=== PATIENT | female | born 1990 | race Two or more races ===

== ENCOUNTER 2016-09-18 22:03 | Inpatient (IN) | payer OTHER ==
[~2016-09-18] VITALS: Ht 160 cm; Wt 82.0 kg
[2016-09-19] MEDS ORDERED: OXYTOCIN 30U/ 0.9% NaCL 500ML 500 ML IV ONE (01:30)
[2016-09-19] MEDS ORDERED: CALCIUM CARBONATE 500 MG TAB.CHEW PO PRN (01:30)
[2016-09-19] MEDS ORDERED: FENTANYL PF 100 MCG/2ML IV PRN (01:30)
[2016-09-19] MEDS ORDERED: ONDANSETRON 2MG/ML, 2ML IVPush PRN (01:30)
[2016-09-19] MEDS ORDERED: LACTATED RINGERS 1,000 ML IVBOLUS PRN ×2 (01:30→07:30)
[2016-09-19] MEDS ORDERED: D5%-LACTATED RINGERS 1,000 ML IV SCH (01:30)
[2016-09-19] MEDS ORDERED: FENTANYL PF 100 MCG/2ML ONE ×2 (01:30→02:32)
[2016-09-19] MEDS: LACTATED RINGERS 1,000 ML IV SCH ×2 (01:39→03:09)
[2016-09-19] MEDS: FENTANYL PF 100 MCG/2ML IVPush PRN ×2 (01:40→02:38)
[2016-09-19] MEDS ORDERED: NEWBORN KIT ONE (01:43)
[2016-09-19 02:10] LABS: HEMOGLOBIN 14.2 g/dL (11.7-16.4)
[2016-09-19] MEDS ORDERED: ALBUTEROL/IPRATROPIUM 2.5MG/0.5MG, 3 ML IPPB PRN (02:30)
[2016-09-19] MEDS ORDERED: BUTORPHANOL 1 MG/ML, 1ML IM ONE (02:30)
[2016-09-19] MEDS ORDERED: PENICILLIN GK 5,000,000 UNITS in DEXTROSE 5% 100 ML IVPB ONE (03:00)
[2016-09-19] MEDS ORDERED: BUPIVACAINE 0.25% ONE (03:06)
[2016-09-19] MEDS ORDERED: LIDOCAINE/PF 1.5-EPI 1:200K, 30 ML ONE (03:06)
[2016-09-19] MEDS ORDERED: FENTANYL/BUPIV./NS/PF 250 ML EPIDCONT ONE (03:09)
[2016-09-19] MEDS ORDERED: OXYTOCIN 30U/ 0.9% NaCL 500ML 500 ML ONE ×2 (04:49→11:22)
[2016-09-19] MEDS ORDERED: PLEASE ENTER HEIGHT AND WEIGHT MC SCH (06:30)
[2016-09-19] MEDS ORDERED: PENICILLIN GK 2,500,000 UNITS in DEXTROSE 5% 100 ML IV SCH (07:00)
[2016-09-19] MEDS ORDERED: LACTATED RINGERS 1,000 ML IV SCH (07:03)
[2016-09-19] MEDS ORDERED: FENTANYL/BUPIV./NS/PF 250 ML EPIDCONT SCH (07:03)
[2016-09-19] MEDS ORDERED: EPHEDRINE 50 MG/ML, 1ML IVPush PRN (07:30)
[2016-09-19] MEDS ORDERED: NALOXONE 0.4 MG/ML, 1ML IVPush PRN (07:30)
[2016-09-19] MEDS ORDERED: OXYTOCIN 30U/ 0.9% NaCL 500ML 500 ML IV SCH ×2 (08:55)
[2016-09-19] MEDS ORDERED: OXYcodone/APAP 5/325MG TABLET PO PRN ×2 (09:00)
[2016-09-19] MEDS: PRENATAL VIT/IRON/FA 1 EACH TABLET PO SCH (09:00)
[2016-09-19] MEDS ORDERED: MISOPROSTOL 200 MCG TABLET PR PRN (09:00)
[2016-09-19] MEDS ORDERED: ONDANSETRON 2MG/ML, 2ML IV PRN (09:00)
[2016-09-19 12:00] VITALS: BP 112/68
[2016-09-19 16:05] VITALS: BP 128/75
[2016-09-19 17:52] LABS: HEMOGLOBIN 12.4 g/dL (11.7-16.4)
[2016-09-19 19:35] VITALS: BP 109/71
[2016-09-19] MEDS ORDERED: DIPH,PERTUSS(ACELL),TET VAC/PF NC IM-VACC ONE ×3 (21:14→22:00)
[2016-09-19] MEDS: IBUPROFEN 600 MG TABLET PO PRN (21:31)
[2016-09-19 23:40] VITALS: BP 107/57
[2016-09-20 04:32] VITALS: BP 115/72
[2016-09-20] MEDS: IBUPROFEN 600 MG TABLET PO PRN ×3 (06:48→21:56)
[2016-09-20 07:40] VITALS: BP 123/79
[2016-09-20] MEDS: DOCUSATE 100 MG CAPSULE PO PRN ×2 (07:57→20:07)
[2016-09-20] MEDS: PRENATAL VIT/IRON/FA 1 EACH TABLET PO SCH (08:00)
[2016-09-20] MEDS ORDERED: IBUP-1222 PO (12:28)
[2016-09-20 13:32] VITALS: BP 120/72
[2016-09-20 16:13] VITALS: BP 112/70
[2016-09-20 21:03] VITALS: BP 119/73
[2016-09-21 07:18] VITALS: BP 107/63
[2016-09-21] MEDS: PRENATAL VIT/IRON/FA 1 EACH TABLET PO SCH (09:00)
== END 2016-09-21 14:25 | disposition home or self-care (01) | DRG 775 ==
LOC: LDOP 22:03 → LDIP 09-19 01:30 → 2NW 09-19 11:44
PROVIDERS: ADMIT Obstetrics & Gynecology; ATTEND Obstetrics & Gynecology
PROC: 10E0XZZ Delivery of Products of Conception, External Approach (ICD-10-PCS; principal; 2016-09-19)
PROC: 0UQGXZZ Repair Vagina, External Approach (ICD-10-PCS; 2016-09-19)
PROC: 0HQ9XZZ Repair Perineum Skin, External Approach (ICD-10-PCS; 2016-09-19)
PROC: 10907ZC Drainage of Amniotic Fluid, Therapeutic from Products of Conception, Via Natural or Artificial Opening (ICD-10-PCS; 2016-09-19)
PROC: 00HU33Z Insertion of Infusion Device into Spinal Canal, Percutaneous Approach (ICD-10-PCS; 2016-09-19)
PROC: 3E0R3CZ (ICD-10-PCS; 2016-09-19)
PROC: 3E033VJ Introduction of Other Hormone into Peripheral Vein, Percutaneous Approach (ICD-10-PCS; 2016-09-19)
DX: O99.52 Diseases of the respiratory system complicating childbirth (principal); Z37.0 Single live birth; Z3A.39 39 weeks gestation of pregnancy; J45.909 Unspecified asthma, uncomplicated; O70.0 First degree perineal laceration during delivery; O77.0 Labor and delivery complicated by meconium in amniotic fluid; O71.4 Obstetric high vaginal laceration alone; O99.824 Streptococcus B carrier state complicating childbirth
CPT/HCPCS: 36415; 85025; 86850; 86900; 90715; J2540; J3010; J3490; J2590; J7120; J7121